=== PATIENT | female | born 1950 | race Caucasian/White ===

== ENCOUNTER 2016-10-01 12:21 | Emergency (ER) | payer OTHER, MEDICARE ==
[2016-10-01 12:33] VITALS: RESP 18; TEMP 98.4
[2016-10-01] MEDS ORDERED: TDAP ADULT 0.5 ML INJ (BOOSTRIX) IM ONE (13:29)
[2016-10-01] MEDS ORDERED: IBUPROFEN 600 MG TAB PO ONE (13:29)
[2016-10-01] MEDS ORDERED: LET GEL TOPICAL 1 EA SYR TP ONE ×2 (13:29→14:40)
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
[2016-10-01 16:20] VITALS: BP 128/74; PULSE 74; O2SAT 96
== END 2016-10-18 12:50 | disposition home or self-care (01) ==
PROC: 0HQKXZZ Repair Right Lower Leg Skin, External Approach (ICD-10-PCS; principal; 2016-10-01)
DX: S81.011A Laceration without foreign body, right knee, initial encounter (principal); S50.311A Abrasion of right elbow, initial encounter; Z23 Encounter for immunization; V18.0XXA Pedal cycle driver injured in noncollision transport accident in nontraffic accident, initial encounter; Y93.55 Activity, bike riding

== ENCOUNTER 2016-10-27 10:09 | Emergency (ER) | payer OTHER, MEDICARE ==
[2016-10-27 10:20] VITALS: TEMP 98.4
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
[2016-10-27 12:58] VITALS: BP 125/65; PULSE 63; RESP 18; O2SAT 94
== END 2016-10-27 11:44 | disposition home or self-care (01) ==
DX: Z48.01 Encounter for change or removal of surgical wound dressing (principal)

== ENCOUNTER → 2017-04-20 | Outpatient (CLI) | payer OTHER, MEDICARE | LOC: CIMAGING 15:47 | PROVIDERS: ATTEND Family Medicine | DX: J40 Bronchitis, not specified as acute or chronic (principal) | CPT/HCPCS: 71046-PO ==

== ENCOUNTER → 2017-09-11 | Outpatient (CLI) | payer OTHER, MEDICARE | LOC: FIMAGING 15:12 | PROVIDERS: ATTEND Family Medicine | DX: Z12.31 Encounter for screening mammogram for malignant neoplasm of breast (principal); Z80.3 Family history of malignant neoplasm of breast ==